=== PATIENT | female | born 1970 | race Caucasian/White ===

== ENCOUNTER 2025-09-08 07:01 | Day surgery (SDC) | payer BC, MEDICAID ==
[2025-09-08] VITALS (7 sets, daily range): BP systolic 88–125; BP diastolic 42–86; PULSE 79–90; RESP 12–18; TEMP 98; O2SAT 96–100
[~2025-09-08] VITALS: Ht 157.5 cm; Wt 96.6 kg
[~2025-09-08 07:01] MED LIST: GABA300C PO; LURA60TA4 PO; PSEU-303 PO; SEMA0.5P SQ; SERT-432 PO; ringers solution, lacted 1,000 ML IV SCH; simethicone 40mg/0.6ml oral drops 15ml PO ONE
[2025-09-08] MEDS ORDERED: fentaNYL/PF 50MCG/1 ML 2ML syringe ONE (09:14)
[2025-09-08] MEDS ORDERED: midazolam 1 mg/ML 2ml injection ONE ×2 (09:14)
[2025-09-08] MEDS ORDERED: propofol inj 20 ML IV ONE ×2 (09:35)
== END 2025-09-08 10:19 | disposition home or self-care (01) ==
LOC: PAS 07:01
PROVIDERS: ATTEND Internal Medicine Gastroenterology
DX: Z12.11 Encounter for screening for malignant neoplasm of colon (principal); K63.89 Other specified diseases of intestine; E66.9 Obesity, unspecified; F41.9 Anxiety disorder, unspecified; F32.A Depression, unspecified; R73.09 Other abnormal glucose; Z68.39 Body mass index [BMI] 39.0-39.9, adult; Z87.891 Personal history of nicotine dependence
CPT/HCPCS: 45378; 82948; J2250; J2704; J3010; J7120; Z7512; A4615; A4620